=== PATIENT | female | born 1990 | race Hispanic/Latino ===

== ENCOUNTER → 2023-11-16 | Day surgery (SDC) | payer OTHER ==
[~2023-11-16] MED LIST: LACTATED RINGER'S 1,000 ML ONE; LIDOCAINE HCL 2% LOCAL INJ 5 ML SDV VIAL INJ ONE; MIDAZOLAM HCL 2 MG/2 ML VIAL ONE; PROPOFOL IV EMULSION 10 MG/ML 20 ML VIAL ONE
[2023-11-16 10:00] VITALS: TEMP 98.1
[2023-11-16 10:30] VITALS: BP 105/64; PULSE 75; RESP 16; O2SAT 99
== END | disposition home or self-care (01) ==
LOC: OR 08:31
PROVIDERS: ATTEND Internal Medicine Gastroenterology
DX: K62.5 Hemorrhage of anus and rectum (principal); D12.0 Benign neoplasm of cecum; K63.5 Polyp of colon; K64.8 Other hemorrhoids; K59.09 Other constipation; R10.11 Right upper quadrant pain
CPT/HCPCS: 45380; 45385; 81025; J2001; J2250; J2704; J7121; 45384